=== PATIENT | male | born 1950 | race Caucasian/White ===

== ENCOUNTER → 2025-03-24 10:01 | Outpatient (REF) | payer MEDICARE, OTHER, SELFPAY ==
[2025-03-24 11:57] LABS: Blood Urea Nitrogen 13 mg/dl (9-20); Calcium 9.7 mg/dl (8.4-10.2); Carbon Dioxide 28 mmol/L (22-30); Chloride 107 mmol/L (98-107); Glucose 112 mg/dl (70-99); Potassium 4.4 mmol/L (3.5-5.1); Sodium 140 mmol/L (135-145); eGFR > 60.00
== END ==
LOC: REG 10:01
PROVIDERS: ATTENDING PHYSICIAN Surgery; FAMILY PHYSICIAN Student in an Organized Health Care Education/Training Program
DX: D17.9 Benign lipomatous neoplasm, unspecified (principal)
CPT/HCPCS: 36415; 80048

== ENCOUNTER → 2025-04-01 07:49 | Outpatient (REF) | payer MEDICARE, OTHER, SELFPAY | LOC: RAD 07:49 | PROVIDERS: ATTENDING PHYSICIAN Surgery; FAMILY PHYSICIAN Student in an Organized Health Care Education/Training Program | DX: D17.9 Benign lipomatous neoplasm, unspecified (principal) | CPT/HCPCS: 74177; Q9967 ==